=== PATIENT | female | born 1995 | race American Indian/Alaskan Native ===

== ENCOUNTER 2021-04-21 09:31 | Emergency (ER) | payer OTHER ==
[2021-04-21 10:20] LABS: BILIRUBIN,URINE NEGATIVE (NEGATIVE); GLUCOSE, URINE (UA) NEGATIVE (NEGATIVE); KETONES,URINE (UA) NEGATIVE (NEGATIVE); LEUKOCYTE ESTERASE, URINE NEGATIVE (NEGATIVE); NITRITE,URINE NEGATIVE (NEGATIVE); OCCULT BLOOD,URINE NEGATIVE (NEGATIVE); PH,URINE 7.5 PH (5.0-7.5); PROTEIN,URINE NEGATIVE (NEGATIVE); UROBILINOGEN,URINE 0.2 (NORMAL) E.U./dL (NORMAL)
[2021-04-21 10:21] LABS: CLARITY,URINE CLEAR (CLEAR); HCG UR QUAL NEGATIVE
[2021-04-21 10:23] LABS: BASOPHILS % (AUTO) 0.5 %; EOSINOPHILS % (AUTO) 0.5 %; HCT - HEMATOCRIT 39.7 % (37.0-47.0); HGB - HEMOGLOBIN 12.5 g/dL (12.0-16.0); LYMPHOCYTES # (AUTO) 1.4 10^3/uL (1.5-3.5); MEAN CORPUSCULAR HEMOGLOBIN 29.1 pg (27.0-31.0); MEAN CORPUSCULAR HGB CONC 31.5 g/dL (32.0-36.0); MEAN CORPUSCULAR VOLUME 92.5 fL (81.0-99.0); MEAN PLATELET VOLUME 11.7 fL (7.9-10.8); MONOCYTES # (AUTO) 0.5 10^3/uL (0.0-1.0); MONOCYTES % (AUTO) 7.6 %; NEUTROPHILS # (AUTO) 4.5 10^3/uL (1.5-6.6); NEUTROPHILS % (AUTO) 70.1 %; PLT - PLATELET COUNT 199 10^3/uL (130-450); RED BLOOD COUNT 4.29 10^6/uL (4.20-5.40); RED CELL DISTRIBUTION WIDTH 12.3 % (12.0-15.0); WHITE BLOOD COUNT 6.5 x10^3/uL (4.8-10.8)
[2021-04-21 10:35] LABS: ALBUMIN 4.3 g/dL (3.2-5.5); ALBUMIN/GLOBULIN RATIO 1.1 (1.0-2.2); BILIRUBIN,TOTAL 0.6 mg/dL (0.2-1.0); CALCIUM 9.7 mg/dL (8.5-10.3); CREATININE 0.7 mg/dL (0.4-1.0); TOTAL PROTEIN 8.1 g/dL (6.7-8.2)
[2021-04-21] MEDS ORDERED: iohexoL-300 100 ML VIAL ONE (11:26)
[2021-04-21] MEDS ORDERED: iohexoL-300 100 ML VIAL IVP ONE (12:16)
--- NOTE | 2021-04-21 12:35 | CT Report ---
PROCEDURE: Abdomen/Pelvis W INDICATIONS: persistent cramping pain X 2 months. CONTRAST: IV CONTRAST: Optiray 320 ml: 100 PO CONTRAST: *NO PO CONTRAST TECHNIQUE: After the administration of IV contrast, 5 mm thick sections acquired from the diaphragms to the symp hysis. 5 mm thick coronal and sagittal reformats were acquired. For radiation dose reduction, the f ollowing was used: automated exposure control, adjustment of mA and/or kV according to patient size. COMPARISON: None. FINDINGS: Image quality: Excellent. ABDOMEN: Lung bases: Lung bases are clear. There is pectus excavatum deformity seen, with mass effect upon t he heart. Heart size is normal. Solid organs: Liver and spleen are normal in size and enhancement. Gallbladder wall does not appear thickened. Biliary system is non dilated. Pancreas enhances normally. No adrenal nodules. Kidn eys demonstrate normal size and enhancement, without hydronephrosis. Peritoneum and bowel: Beginning at the level of the hepatic flexure, there is generalized nodular wal l thickening seen involving the colon. No findings of perforation or abscess can be seen. No dilated loops of small bowel are seen. No free fluid or air. There is a normal appendix seen, as on series 4 images 59 through 62. Nodes and vessels: No retroperitoneal or mesenteric adenopathy by size criteria. Aorta and inferior vena cava are normal in size. Miscellaneous: No ventral hernias. PELVIS: Genitourinary: Bladder wall thickness is normal. The uterus demonstrates an unremarkable appearance for age. No adnexal masses are seen. There is a rim-enhancing right ovarian cystic lesion, as on ser ies 4 image 69 and on series 7 image 23 measuring up to 20 mm. Miscellaneous: No inguinal hernias or adenopathy. Bones: No suspicious bony lesions. No vertebral body compression fractures. IMPRESSION: Mild nodular thickening can be seen involving the majority of the colon. Please correlat e with potential underlying infectious or inflammatory causes. Apparent right ovarian hemorrhagic cyst. If clinically appropriate, please consider a short-term fol low-up ultrasound in 6 weeks to ensure resolution/improvement. Incidental note is made of: Pectus excavatum deformity Normal appendix Reviewed by: Arturo Bentley MD on 04/21/2021 11:33 AM [place] Approved by: Arturo Bentley MD on 04/21/2021 11:33 AM [place] Station ID: [id number]
--- NOTE | 2021-04-21 12:52 | ED Physician Documentation ---
PD HPI ABD PAIN - Stated complaint Stated Complaint: STOMACH PX - Chief complaint Chief Complaint: Abd Pain - History obtained from History obtained from: Patient - History of Present Illness Timing - onset: How many months ago (2) Timing - duration: Months (2) Timing - details: Gradual onset, Still present Quality: Cramping, Sharp, Pain Location: All over / everywhere Improved by: Laying still Worsened by: Position, Palpation Associated symptoms: Nausea, Diarrhea Similar symptoms before: Has not had sx before Recently seen: Not recently seen - Additional information Additional information: Previously well 25-year-old female has developed a change in her bowel habits beginning about 2 months ago. She has been having some loose stool which happens every 2 to 3 days. She has a voluminous amount of stool and she has cramping pain associated with all of this. She has not had blood in her diarrhea. She has had cramping pain and she is here today for persistent cramping pain throughout her abdomen. She does not have a family history of inflammatory bowel disease and she has not had problems with digestion previously. She has not had fever. 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 : None HEENT: None Psych: Depression, Anxiety Musculoskeletal: None Derm: None - Past Surgical History Past Surgical History: No - Present Medications Home Medications: Ambulatory Orders Medication Instructions Recorded Confirmed Budesonide [Entocort EC] 9 mg PO DAILY #20 cap 04/21/21 - Allergies Allergies/Adverse Reactions: Allergies Allergy/AdvReac Type Severity Reaction Status Date / Time No Known Drug Allergies Allergy Verified 04/21/21 09:54 - Social History Does the pt smoke?: No Smoking Status: Never smoker Does the pt drink ETOH?: Yes Does the pt have substance abuse?: No - Immunizations Immunizations are current?: Yes PD ED PE NORMAL - Vitals Vital signs reviewed: Yes (Tachycardic) - General General: Alert and oriented X 3, No acute distress, Well developed/nourished - HEENT HEENT: Atraumatic, PERRL, EOMI - Neck Neck: Supple, no meningeal sign, No bony TTP - Cardiac Cardiac: RRR, No murmur - Respiratory Respiratory: No respiratory distress, Clear bilaterally - Abdomen Abdomen: Normal bowel sounds, Soft, Non distended, No organomegaly, Other (Mild generalized tenderness without guarding or rebound tenderness. Majority of the tenderness is suprapubic and spares the right upper quadrant.) - Back Back: No CVA TTP, No spinal TTP - Derm Derm: Normal color, Warm and dry, No rash - Extremities Extremities: No deformity, No edema - Neuro Neuro: Alert and oriented X 3, frame straightener 2-12 intact, No motor deficit, No sensory deficit, Normal speech Eye Opening: Spontaneous Motor: Obeys Commands Verbal: Oriented GCS Score: 15 - Psych Psych: Normal mood, Normal affect Results - Vitals Vitals: Vital Signs - 24 hr 04/21/21 04/21/21 04/21/21 09:54 11:08 12:43 Temperature 36.7 C 36.9 C 36.6 C Heart Rate 117 H 110 H 118 H Respiratory 18 16 16 Rate Blood Pressure 122/78 135/89 H 118/68 O2 Saturation 99 100 100 Oxygen O2 Source Room air - Labs Labs: Laboratory Tests 04/21/21 04/21/21 04/21/21 10:04 10:18 10:18 WBC 6.5 RBC 4.29 Hgb 12.5 Hct 39.7 MCV 92.5 MCH 29.1 MCHC 31.5 L RDW 12.3 Plt Count 199 MPV 11.7 H Neut # (Auto) 4.5 Lymph # (Auto) 1.4 L [place] # (Auto) 0.5 Eos # (Auto) 0.0 Baso # (Auto) 0.0 Absolute Nucleated RBC 0.00 Nucleated RBC % 0.0 Sodium 136 Potassium 4.0 Chloride 102 Carbon Dioxide 26 Anion Gap 8.0 BUN 13 Creatinine 0.7 Estimated GFR (MDRD) 104 Glucose 101 H Calcium 9.7 Total Bilirubin 0.6 AST 18 ALT 10 Alkaline Phosphatase 54 Total Protein 8.1 Albumin 4.3 Globulin 3.8 Albumin/Globulin Ratio 1.1 Lipase 31 Urine Color YELLOW Urine Clarity CLEAR Urine pH 7.5 Ur Specific [place] 1.015 Urine Protein NEGATIVE Urine Glucose (UA) NEGATIVE Urine Ketones NEGATIVE Urine Occult Blood NEGATIVE Urine Nitrite NEGATIVE Urine Bilirubin NEGATIVE Urine Urobilinogen 0.2 (NORMAL) Ur Leukocyte Esterase NEGATIVE Ur Microscopic Review NOT INDICATED Urine Culture Comments NOT INDICATED Urine HCG, Qual NEGATIVE - Rads (name of study) CT ab/pel with Radiology: Prelim report reviewed (Impression: Mild nodular thickening can be seen involving the majority of the colon. Please correlate with potential underlying infectious or inflammatory causes. Apparent right ovarian hemorrha gic cyst. If clinically appropriate please consider a short-term follow-up ultrasound), Final report received ( with ultrasound in 6 weeks to ensure resolution/improvement.), EMP read indepedently, See rad report PD MEDICAL DECISION MAKING - ED course Complexity details: reviewed results, re-evaluated patient, considered differential, d/w patient ED course: 25-year-old female with 2 months of intermittent abdominal cramping and loose stools appears to have some nodularity to the colon consistent with inflammatory bowel disease. We will start her on some budesonide and have her follow-up with her primary for referral to gastroenterology. There is an incidental finding of a hemorrhagic ovarian cyst on the right side. They have asked for follow-up ultrasound to ensure resolution. Departure - Departure Disposition: 01 Home, Self Care Clinical Impression: Inflammatory bowel disease Condition: Stable Instructions: ED Inflam Bowel Disease Crohn, ED Colitis Ulcerative Follow-Up: [facility] [Provider Group] Prescriptions: Budesonide [Entocort EC] 9 mg PO DAILY #20 cap Comments: Isabel, today it looks like you have some inflammatory bowel disease on your CAT scan. This does fit with your description historically. In order to make the appropriate diagnosis this requires a visit to the chemical etching processor and a scoping with biopsy. In the meantime I have written a prescription for some Budesinide which is a steroid released in the colon. This has been e-scribed to the [facility] pharmacy in [place]. The idea is for you to have some relief of your pain prior to getting in to see the chemical etching processor, as this can take some time. I have written a prescription for about 3 weeks worth of medicine and the typical course for this is about 12 weeks if it is effective. Follow-up with your primary for continuation of this medicine if it is helping and for referral to a chemical etching processor for definitive diagnosis. An additional incidental finding of a hemorrhagic ovarian cyst on the right side was found on your CAT scan. The radiologist has recommended a follow-up ultrasound to be done in the next 2 months. Follow-up with your primary for this test.
[2021-04-21 13:39] VITALS: BP 112/71
--- NOTE | 2021-04-22 16:18 | ED Physician Documentation ---
ED Addendum - Addendum Addendum: 04/22/21 16:18 Got message that no local pharmacy has budesonide. I sent a prednisone taper to [facility] for her.
== END 2021-04-21 13:40 | disposition home or self-care (01) ==
LOC: ED 09:31
DX: K52.9 Noninfective gastroenteritis and colitis, unspecified (principal)
CPT/HCPCS: 36415; 74177; 80053; 81003; 81025; 83690; 85025; 99283; 99284; Q9967; 81001; 87086

== ENCOUNTER 2021-06-12 10:30 | Emergency (ER) | payer OTHER ==
[2021-06-12 10:46] VITALS: BP 133/62
--- NOTE | 2021-06-12 10:48 | ED Physician Documentation ---
PD HPI UPPER EXT INJURY - Stated complaint Stated Complaint: FINGER PX - Chief complaint Chief Complaint: Laceration - History obtained from History obtained from: Patient - History of Present Illness Location: Right, Finger (index) Type of injury: Laceration (cut finger 4 days ago and has continued opening of the wound with tender and bleeding at times. No purulence.) Timing - onset: How many days ago (4) Timing - details: Abrupt onset, Still present (still with opening of wound edges at times and mild bleeding. No infection.) Associated symptoms: Discolored (mild purple color at edge c/w bruising.). 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 : None HEENT: None Psych: Depression, Anxiety Musculoskeletal: None Derm: None - Past Surgical History Past Surgical History: No - Present Medications Home Medications: Ambulatory Orders Medication Instructions Recorded Confirmed No Known Home Medications 06/12/21 06/12/21 - Allergies Allergies/Adverse Reactions: Allergies Allergy/AdvReac Type Severity Reaction Status Date / Time No Known Drug Allergies Allergy Verified 06/12/21 10:43 - Social History Does the pt smoke?: No Smoking Status: Never smoker Does the pt drink ETOH?: Yes Does the pt have substance abuse?: No - Immunizations Immunizations are current?: Yes PD ED PE NORMAL - Vitals Vital signs reviewed: Yes - General General: Alert and oriented X 3, No acute distress, Well developed/nourished - Derm Derm: Normal color, Warm and dry - Extremities Extremities: Other (Right index finger with a laceration on the ulnar side adjacent to the nailbed corner. It is a flap type laceration with the edges slightly lifted. No signs of infection. Slight purplish color at the edge consistent with bruising.) - Neuro Neuro: Alert and oriented X 3, No motor deficit, No sensory deficit Results - Vitals Vitals: Vital Signs - 24 hr 06/12/21 10:35 Temperature 37.2 C Heart Rate 85 Respiratory 19 Rate Blood Pressure 133/62 H O2 Saturation 98 Oxygen O2 Source Room air PD MEDICAL DECISION MAKING - ED course Complexity details: considered differential (We can just hold down the wound edge with Steri-Strips and glue. No signs of infection currently.), d/w patient Departure - Departure Disposition: 01 Home, Self Care Clinical Impression: Finger laceration Qualifiers: Encounter type: initial encounter Finger: index finger Damage to nail status: without damage Foreign body presence: without foreign body Laterality: right Qualified Code(s): S61.210A - Laceration without foreign body of right index finger without damage to nail, initial encounter Condition: Stable Record reviewed to determine appropriate education?: Yes Instructions: ED Laceration Ext Skin Glue Follow-Up: AMIRAH HART MD [Primary Care Provider] - Comments: The wound appears okay without signs of infection to me. I think the slight purple coloration is just some blood under the skin like a bruising type effect. Keep the Steri-Strips and glue clean and dry. You can cover over them with a bandage. They should fall off on their own after several days and then you can do regular wound care with cleaning soap and water and ointment and bandages. It should be more protected with the current tape and glue and be less tender over the next few days. Tylenol ibuprofen if needed for pains. Recheck if signs of infection. Discharge Date/Time: 06/12/21 11:25
== END 2021-06-12 11:25 | disposition home or self-care (01) ==
LOC: ED 10:30
DX: S61.210A Laceration without foreign body of right index finger without damage to nail, initial encounter (principal); W26.0XXA Contact with knife, initial encounter
CPT/HCPCS: 99281; 99282

== ENCOUNTER 2022-04-09 00:46 | Emergency (ER) | payer OTHER ==
[2022-04-09 01:07] VITALS: BP 125/67
[2022-04-09] MEDS ORDERED: SODIUM CHLORIDE 0.9% 1,000 ML IV STA (01:18)
[2022-04-09] MEDS ORDERED: ONDANSETRON 4 MG/2 ML VIAL IVP STA (01:19)
[2022-04-09 01:41] LABS: BASOPHILS % (AUTO) 0.5 %; EOSINOPHILS # (AUTO) 0.1 10^3/uL (0.0-0.7); HGB - HEMOGLOBIN 10.5 g/dL (12.0-16.0); LYMPHOCYTES # (AUTO) 1.9 10^3/uL (1.5-3.5); LYMPHOCYTES % (AUTO) 30.6 %; MEAN CORPUSCULAR HEMOGLOBIN 26.6 pg (27.0-31.0); MEAN CORPUSCULAR HGB CONC 30.9 g/dL (32.0-36.0); MEAN CORPUSCULAR VOLUME 86.1 fL (81.0-99.0); MEAN PLATELET VOLUME 12.1 fL (7.9-10.8); MONOCYTES # (AUTO) 0.4 10^3/uL (0.0-1.0); MONOCYTES % (AUTO) 6.3 %; NEUTROPHILS # (AUTO) 3.9 10^3/uL (1.5-6.6); NEUTROPHILS % (AUTO) 61.4 %; PLT - PLATELET COUNT 157 10^3/uL (130-450); RED BLOOD COUNT 3.95 10^6/uL (4.20-5.40); RED CELL DISTRIBUTION WIDTH 14.5 % (12.0-15.0); WHITE BLOOD COUNT 6.3 x10^3/uL (4.8-10.8)
[2022-04-09 01:52] LABS: ALBUMIN 4.1 g/dL (3.2-5.5); ALBUMIN/GLOBULIN RATIO 1.3 (1.0-2.2); ALKALINE PHOSPHATASE 50 IU/L (42-121); ALT ALANINE AMINOTRANSFERASE < 10 IU/L (10-60); AST ASPARTATE AMINOTRANSFERASE 15 IU/L (10-42); BILIRUBIN,TOTAL 0.3 mg/dL (0.2-1.0); BUN - BLOOD UREA NITROGEN 10 mg/dL (6-20); CALCIUM 9.4 mg/dL (8.5-10.3); CARBON DIOXIDE - CO2 24 mmol/L (21-32); CHLORIDE 104 mmol/L (101-111); CREATININE 0.7 mg/dL (0.4-1.0); GFR - MDRD 103 (>89); GLUCOSE 103 mg/dL (70-100); LIPASE 50 U/L (22-51); POTASSIUM 3.8 mmol/L (3.5-5.0); SODIUM 136 mmol/L (135-145); TOTAL PROTEIN 7.3 g/dL (6.7-8.2)
[2022-04-09 02:30] LABS: HCG,QUALITATIVE BLOOD NEGATIVE
[2022-04-09] MEDS ORDERED: iohexoL-300 100 ML VIAL ONE (02:51)
[2022-04-09] MEDS ORDERED: iohexoL-300 100 ML VIAL IVP ONE (03:25)
--- NOTE | 2022-04-09 03:50 | ED Physician Documentation ---
History of Present Illness - Stated complaint Stated Complaint: ABD PX,VOMIT - Chief complaint Chief Complaint: Abd Pain - History obtained from History obtained from: Patient - Additonal information Additional information: The patient comes to the emergency department chief complaint of diffuse abdominal pain worse in right lower quadrant, constipation, and nausea/vomiting intermittently for the last week and a half since starting a new medication for ADHD. The patient denies fevers or chills. No blood in her stools. No respiratory symptoms. No other complaints at this time. Review of Systems Ten Systems: 10 systems reviewed and negative Constitutional: reports: Reviewed and negative Eyes: reports: Reviewed and negative Ears: reports: Reviewed and negative Nose: reports: Reviewed and negative Throat: reports: Reviewed and negative Cardiac: reports: Reviewed and negative Respiratory: reports: Reviewed and negative GI: reports: Abdominal Pain, Nausea, Vomiting, Constipation : reports: Reviewed and negative Skin: reports: Reviewed and negative Musculoskeletal: reports: Reviewed and negative Neurologic: reports: Reviewed and negative Psychiatric: reports: Reviewed and negative Endocrine: reports: Reviewed and negative Immunocompromised: reports: Reviewed and negative PD PAST MEDICAL HISTORY - Past Medical History Cardiovascular: None Respiratory: None Neuro: Migraines Endocrine/Autoimmune: None 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 : None HEENT: None Psych: Depression, Anxiety, ADD/ADHD Musculoskeletal: None Derm: None - Past Surgical History Past Surgical History: No - Present Medications Home Medications: Ambulatory Orders Medication Instructions Recorded Confirmed Docusate Sodium 250Mg Capsule 250 mg PO DAILY #30 cap 04/09/22 [Colace 250Mg Capsule] Escitalopram Oxalate 5 mg PO DAILY 04/09/22 04/09/22 Magnesium Citrate [Citrate of 148 ml PO Q12H PRN #296 ml 04/09/22 Magnesia] Ondansetron Odt [Zofran] 4 mg TL Q6H PRN #10 tablet 04/09/22 Viloxazine HCl [Qelbree] 200 mg PO DAILY 04/09/22 04/09/22 - Allergies Allergies/Adverse Reactions: Allergies Allergy/AdvReac Type Severity Reaction Status Date / Time No Known Drug Allergies Allergy Verified 04/09/22 01:07 - Social History Does the pt smoke?: No Smoking Status: Never smoker Does the pt drink ETOH?: Yes Does the pt have substance abuse?: No - Immunizations Immunizations are current?: Yes PD ED PE NORMAL - Vitals Vital signs reviewed: Yes - General General: Alert and oriented X 3, No acute distress, Well developed/nourished - HEENT HEENT: Atraumatic, PERRL, EOMI, Moist mucous membranes - Neck Neck: Supple, no meningeal sign - Cardiac Cardiac: RRR, No murmur, Strong equal pulses - Respiratory Respiratory: No respiratory distress, Clear bilaterally - Abdomen Abdomen: Soft, Non distended, Other (Moderate tenderness right lower quadrant, no other tenderness noted on exam. No rebound or guarding.) - Back Back: No CVA TTP - Derm Derm: Normal color, Warm and dry, No rash - Extremities Extremities: No deformity - Neuro Neuro: Alert and oriented X 3 - Psych Psych: Normal mood, Normal affect Results - Vitals Vitals: Vital Signs - 24 hr 04/09/22 01:00 Temperature 36.7 C Heart Rate 88 Respiratory 18 Rate Blood Pressure 125/67 O2 Saturation 100 Oxygen O2 Source Room air - Labs Labs: Laboratory Tests 04/09/22 04/09/22 04/09/22 01:29 01:29 01:29 WBC 6.3 RBC 3.95 L Hgb 10.5 L Hct 34.0 L MCV 86.1 MCH 26.6 L MCHC 30.9 L RDW 14.5 Plt Count 157 MPV 12.1 H Neut # (Auto) 3.9 Lymph # (Auto) 1.9 [place] # (Auto) 0.4 Eos # (Auto) 0.1 Baso # (Auto) 0.0 Absolute Nucleated RBC 0.00 Nucleated RBC % 0.0 Sodium 136 Potassium 3.8 Chloride 104 Carbon Dioxide 24 Anion Gap 8.0 BUN 10 Creatinine 0.7 Estimated GFR (MDRD) 103 Glucose 103 H Calcium 9.4 Total Bilirubin 0.3 AST 15 ALT < 10 L Alkaline Phosphatase 50 Total Protein 7.3 Albumin 4.1 Globulin 3.2 Albumin/Globulin Ratio 1.3 Lipase 50 Serum HCG, Qual NEGATIVE - Rads (name of study) CT abdomen pelvis Radiology: Prelim report reviewed, Final report received, See rad report (Ruptured right ovarian cyst; normal appendix; significant fecal burden) PD Medical Decision Making - ED course Complexity details: reviewed results, re-evaluated patient, considered differential, d/w patient ED course: The patient was fairly well-appearing, but did have tenderness that localizes to the right lower quadrant. Given that this has been going on for a week and a half, and was accompanied by nausea and vomiting, I felt the patient should be worked up. Laboratory studies were unremarkable. The patient was sent for CT scan of the abdomen and pelvis. In the meantime, she was given IV fluids and Zofran. The CT scan showed constipation and a rupturing right ovarian cyst. The patient was advised of the results and that no emergent condition has been identified. We discussed symptomatic management at home, as well as the usual indications for return. Departure - Departure Disposition: Home, Self Care Clinical Impression: Ruptured ovarian cyst Vomiting Qualifiers: Vomiting type: bilious vomiting Nausea presence: with nausea Qualified Code(s): R11.14 - Bilious vomiting Constipation Qualifiers: Constipation type: unspecified constipation type Qualified Code(s): K59.00 - Constipation, unspecified Condition: Stable Instructions: Cyst Ruptured Ovarian Tx, ED Constipation, ED Nausea Vomiting Prescriptions: Magnesium Citrate [Citrate of Magnesia] 148 ml PO Q12H PRN #296 ml PRN Reason: Constipation Docusate Sodium 250Mg Capsule [Colace 250Mg Capsule] 250 mg PO DAILY #30 cap Ondansetron Odt [Zofran] 4 mg TL Q6H PRN #10 tablet PRN Reason: Nausea / Vomiting Comments: Your labs look good. Your CT scan shows a normal appendix, but a partially ruptured ovarian cyst on the right. There is also a large amount of stool filling your colon. It is possible that your new medications cause the constipation. You may continue to take the new medication, but should also take a stool softener with this to help with some of the unpleasant side effects. Please follow-up with your primary care physician as needed. Your prescriptions have been electronically transmitted to [facility] pharmacy in [place], your pharmacy of choice on record. Discharge Date/Time: 04/09/22 05:50
--- NOTE | 2022-04-09 08:38 | CT Report ---
PROCEDURE: ABDOMEN/PELVIS W INDICATIONS: RLQ abd pn/vomiting CONTRAST: Omni 300 100ml TECHNIQUE: After the administration of IV contrast, 5 mm thick sections acquired from the diaphragms to the symp hysis. 5 mm thick coronal and sagittal reformats were acquired. For radiation dose reduction, the f ollowing was used: automated exposure control, adjustment of mA and/or kV according to patient size. COMPARISON: 04/21/2021. FINDINGS: Image quality: Excellent. ABDOMEN: Lung bases: Lung bases are clear. Heart size is normal. Solid organs: Liver and spleen are normal in size and enhancement. Gallbladder is within normal rosa its. Biliary system is non dilated. Pancreas enhances normally. No adrenal nodules. Kidneys demon strate normal size and enhancement, without hydronephrosis. Peritoneum and bowel: There is no bowel obstruction. No abnormal bowel wall thickening. Moderate feca l stasis throughout the colon is seen. Appendix is visualized in right lower quadrant and is normal i n size and appearance. No abscess collection. No free fluid or free air. Nodes and vessels: No retroperitoneal or mesenteric adenopathy by size criteria. Aorta and inferior vena cava are normal in size. Miscellaneous: No ventral hernias. PELVIS: Genitourinary: Bladder wall thickness is normal. Uterus and left ovary show no gross abnormality. 1 .7 cm fluid density structure is noted within right ovary. Miscellaneous: No inguinal hernias or adenopathy. Bones: No suspicious bony lesions. No vertebral body compression fractures. IMPRESSION: 1. Normal appendix. 2. No bowel obstruction. No abscess collection. No free fluid or free air. Moderate constipation. 3. Suggestion of a partially collapsed small right ovarian cyst measures 1.7 cm in size. No discrepancies from preliminary reading. Reviewed by: Ferny Bill MD on 04/09/2022 8:36 AM PST Approved by: Ferny Bill MD on 04/09/2022 8:36 AM PST Station ID: [id number]
== END 2022-04-09 05:50 | disposition home or self-care (01) ==
LOC: ED 00:46
DX: N83.201 Unspecified ovarian cyst, right side (principal); K66.1 Hemoperitoneum
CPT/HCPCS: 36415; 74177; 80053; 83690; 84703; 85025; 96361; 96374; 99282; 99284; Q9967

== ENCOUNTER 2022-04-29 08:45 | Emergency (ER) | payer OTHER ==
--- NOTE | 2022-04-29 09:07 | ED Physician Documentation ---
PD HPI ABD PAIN - Stated complaint Stated Complaint: STOMACH PX/VOMITING - Chief complaint Chief Complaint: Abd Pain - History obtained from History obtained from: Patient - History of Present Illness Timing - onset: How many weeks ago (5-6) Timing - duration: Weeks Timing - details: Gradual onset, Still present, Waxing and waning (has had abd pain intermittently for 5-6 weeks. Seen a month ago for lower abd pain and Dx with partial ruptured ovarian cyst. States has continued with pain intermittently. Has not had good BM for 2 weeks and the amounts out have been small and strained. Having worse pain mid to lower abd 2 days.) Quality: Cramping, Aching. No: Fullness/distended Location: All over / everywhere (mostly lower abd but has had upper and left abd pains recently as well.) Radiation: No: Chest, , Lower back Improved by: BM (but has not had much of them for 2 weeks.). No: Eating Worsened by: Palpation. No: Eating, Moving, Breathing Associated symptoms: Constipation. No: Fever, Nausea, Vomiting, Diarrhea, Dysuria, Vaginal dc Similar symptoms before: Diagnosis (had Dx of ovarian cyst partly ruptured a month ago. Had had diffuse abd cramping/pain about a year ago and dx with colitis. Saw GI in follow up but was better and deferred colonoscopy unless gets more symptoms.) Recently seen: Emergency Dept (1 month ago) Review of Systems Constitutional: denies: Fever, Chills Throat: denies: Sore throat Cardiac: denies: Chest pain / pressure Respiratory: denies: Dyspnea, Cough GI: reports: Abdominal Pain, Nausea, Constipation. denies: Vomiting, Diarrhea : denies: Dysuria, Discharge Skin: denies: Rash, Lesions PD PAST MEDICAL HISTORY - Past Medical History Cardiovascular: None Respiratory: None Neuro: Migraines Endocrine/Autoimmune: None GI: Other HEAD CHARRER: None : None HEENT: None Psych: Depression, Anxiety, ADD/ADHD Musculoskeletal: None Derm: None - Past Surgical History Past Surgical History: No - Present Medications Home Medications: Ambulatory Orders Medication Instructions Recorded Confirmed Docusate Sodium 250Mg Capsule 250 mg PO DAILY #30 cap 04/09/22 [Colace 250Mg Capsule] Escitalopram Oxalate 5 mg PO DAILY 04/09/22 04/09/22 Magnesium Citrate [Citrate of 148 ml PO Q12H PRN #296 ml 04/09/22 Magnesia] Ondansetron Odt [Zofran] 4 mg TL Q6H PRN #10 tablet 04/09/22 Viloxazine HCl [Qelbree] 200 mg PO DAILY 04/09/22 04/09/22 HYDROcod/ACETAM 5/325 [[place] 5/325] 1 ea PO Q6H PRN #12 tablet 04/29/22 Meloxicam [Mobic] 7.5 mg PO BID 10 Days #20 tablet 04/29/22 Ondansetron Odt [Zofran] 4 mg TL Q6H PRN #20 tablet 04/29/22 polyethylene glycoL 3350 [Miralax] 17 gm PO DAILY PRN #1 each 04/29/22 - Allergies Allergies/Adverse Reactions: Allergies Allergy/AdvReac Type Severity Reaction Status Date / Time No Known Drug Allergies Allergy Verified 04/09/22 01:07 - Social History Does the pt smoke?: No Smoking Status: Never smoker Does the pt drink ETOH?: Yes Does the pt have substance abuse?: No - Immunizations Immunizations are current?: Yes PD ED PE NORMAL - Vitals Vital signs reviewed: Yes - General General: Alert and oriented X 3, Well developed/nourished, Other (appears in pain in abdomen) - HEENT HEENT: Pharynx benign - Neck Neck: Supple, no meningeal sign, No adenopathy - Cardiac Cardiac: RRR, No murmur - Respiratory Respiratory: Clear bilaterally - Abdomen Abdomen: Normal bowel sounds, Soft, Non distended, No organomegaly, Other (tender mid abdomen and left without percussion, rebound nor referred tenderness. Not tender in RLQ in particular. ) - Female Female : Deferred - Rectal Rectal: Deferred - Back Back: No CVA TTP - Derm Derm: Normal color Results - Vitals Vitals: Vital Signs - 24 hr 04/29/22 04/29/22 04/29/22 08:51 10:59 12:00 Temperature 36.6 C 36.5 C Heart Rate 110 H 77 74 Respiratory 18 16 16 Rate Blood Pressure 119/77 103/60 106/62 O2 Saturation 100 100 98 04/29/22 13:43 Temperature 36.5 C Heart Rate 72 Respiratory 16 Rate Blood Pressure 110/60 O2 Saturation 98 Oxygen O2 Source Room air - Labs Labs: Laboratory Tests 04/29/22 04/29/22 04/29/22 09:05 09:05 09:05 WBC RBC Hgb Hct MCV MCH MCHC RDW Plt Count MPV Neut # (Auto) Lymph # (Auto) Madison # (Auto) Eos # (Auto) Baso # (Auto) Absolute Nucleated RBC Nucleated RBC % ESR Sodium Potassium Chloride Carbon Dioxide Anion Gap BUN Creatinine Estimated GFR (MDRD) Glucose Calcium Total Bilirubin AST ALT Alkaline Phosphatase Total Protein Albumin Globulin Albumin/Globulin Ratio Lipase Urine Color YELLOW Urine Clarity CLEAR Urine pH 7.0 Ur Specific Eagle 1.010 Urine Protein NEGATIVE Urine Glucose (UA) NEGATIVE Urine Ketones NEGATIVE Urine Occult Blood NEGATIVE Urine Nitrite NEGATIVE Urine Bilirubin NEGATIVE Urine Urobilinogen 0.2 (NORMAL) Ur Leukocyte Esterase NEGATIVE Ur Microscopic Review NOT INDICATED Urine Culture Comments NOT INDICATED Urine HCG, Qual NEGATIVE C. glabrata (PCR) C. krusei (PCR) Rozina species DNA Chlam trachomat DNA PCR NEGATIVE N.gonorrhoeae DNA (PCR) NEGATIVE T. vaginalis (PCR) TNP Bact Vaginosis (PCR) 04/29/22 04/29/22 04/29/22 09:39 09:39 09:39 WBC 4.6 L RBC 4.04 L Hgb 10.7 L Hct 34.9 L MCV 86.4 MCH 26.5 L MCHC 30.7 L RDW 14.8 Plt Count 166 MPV 11.8 H Neut # (Auto) 3.0 Lymph # (Auto) 1.3 L Madison # (Auto) 0.3 Eos # (Auto) 0.0 Baso # (Auto) 0.0 Absolute Nucleated RBC 0.00 Nucleated RBC % 0.0 ESR 23 H Sodium 135 Potassium 3.5 Chloride 102 Carbon Dioxide 25 Anion Gap 8.0 BUN 10 Creatinine 0.7 Estimated GFR (MDRD) 103 Glucose 86 Calcium 9.1 Total Bilirubin 0.7 AST 16 ALT 10 Alkaline Phosphatase 60 Total Protein 7.6 Albumin 4.3 Globulin 3.3 Albumin/Globulin Ratio 1.3 Lipase 35 Urine Color Urine Clarity Urine pH Ur Specific Eagle Urine Protein Urine Glucose (UA) Urine Ketones Urine Occult Blood Urine Nitrite Urine Bilirubin Urine Urobilinogen Ur Leukocyte Esterase Ur Microscopic Review Urine Culture Comments Urine HCG, Qual C. glabrata (PCR) C. krusei (PCR) Rozina species DNA Chlam trachomat DNA PCR N.gonorrhoeae DNA (PCR) T. vaginalis (PCR) Bact Vaginosis (PCR) 04/29/22 09:59 WBC RBC Hgb Hct MCV MCH MCHC RDW Plt Count MPV Neut # (Auto) Lymph # (Auto) Madison # (Auto) Eos # (Auto) Baso # (Auto) Absolute Nucleated RBC Nucleated RBC % ESR Sodium Potassium Chloride Carbon Dioxide Anion Gap BUN Creatinine Estimated GFR (MDRD) Glucose Calcium Total Bilirubin AST ALT Alkaline Phosphatase Total Protein Albumin Globulin Albumin/Globulin Ratio Lipase Urine Color Urine Clarity Urine pH Ur Specific Eagle Urine Protein Urine Glucose (UA) Urine Ketones Urine Occult Blood Urine Nitrite Urine Bilirubin Urine Urobilinogen Ur Leukocyte Esterase Ur Microscopic Review Urine Culture Comments Urine HCG, Qual C. glabrata (PCR) NEGATIVE C. krusei (PCR) NEGATIVE Rozina species DNA NEGATIVE Chlam trachomat DNA PCR N.gonorrhoeae DNA (PCR) T. vaginalis (PCR) NEGATIVE Bact Vaginosis (PCR) NEGATIVE - Rads (name of study) pelvic U/S Radiology: Prelim report reviewed (had CT abd a month ago showing ovarian cyst partly collapsed and small free fluid. No other abnormal. Has constipation and pain now could be that. Can assess ovaries with U/S to see if changed. ), See rad report PD Medical Decision Making - ED course Complexity details: considered differential, d/w patient Reviewed Lab Results: normal labs except elevated ESR mildly at 23. Consider IBD/Crohn's type illness in lieu of having similar uncertain cause abd pain about a year ago. Can treat with nsaiDs and stool softener. Does not have acute abd findings and nroamL WBC and no fever. So I do not think significant infectious colitis. Departure - Departure Disposition: 01 Home, Self Care Clinical Impression: Generalized abdominal cramping, Ovarian cyst, Irritable bowel Condition: Stable Record reviewed to determine appropriate education?: Yes Instructions: ED Abdominal Pain Female Non-Specific Abdominal Pain Follow-Up: AMIRAH HART MD [Primary Care Provider] - Prescriptions: polyethylene glycoL 3350 [Miralax] 17 gm PO DAILY PRN #1 each PRN Reason: Constipation Meloxicam [Mobic] 7.5 mg PO BID 10 Days #20 tablet HYDROcod/ACETAM 5/325 [[place] 5/325] 1 ea PO Q6H PRN #12 tablet PRN Reason: Pain Ondansetron Odt [Zofran] 4 mg TL Q6H PRN #20 tablet PRN Reason: Nausea / Vomiting Comments: Your ultrasound today showed the presence of a cyst on the left side which is about 2 cm. No signs of bleeding or leakage from it (no free fluid). The size of this is unlikely to be causing pain at this time. No other acute abnormalities noted per se. Consideration for your cramps and pains can be ongoing level of constipation and some irritation of the intestines. Other consideration would be some inflammatory bowel disease such as inflammatory bowel/Crohn's etc. Your inflammatory marker called the ESR is slightly elevated at 25 which may be correlating with that. I would have you stay well-hydrated and continue with your docusate daily. If you do feel that there is some stool in the rectum and having difficulty coming out, and you could use a Dulcolax suppository to help stimulate that. Otherwise stay well-hydrated and we would add MiraLAX to help with the constipation. Initially use the MiraLAX 17 g in half to 1 cup of water and repeat the dosing every 2-3 hours through the day today and tomorrow until your stools are moving a little more loosely. Then reduce it to just once daily in addition to your fiber and docusate. For consideration of some inflammatory bowel, I would also add meloxicam twice daily for the next 7 to 10 days. To that add Tylenol every 4-6 hours if needed for pain. Add hydrocodone sparingly if needed for worse pain as will increase constipation. Follow-up with your primary care and also with the rereferral to the battery container tester [employer] in [facility] that you would seen previously. Consideration would be for further testing and potential colonoscopy to better evaluate the ongoing pains. Is a new prescription to [facility] pharmacy in the [place]. I am prescribing a short course of narcotic pain medication for you. These are potentially dangerous and addictive medications that should be used carefully. These medications may constipate you. Take an [id number] stool softener such as docusate twice daily with plenty of water while taking these medications. If you go 24 hours without a bowel movement, take [id number] MiraLAX, per package instructions. Do not drink or drive while taking these medications. If you received narcotic or sedating medications while in the emergency department do not drive for 24 hours. Store this medication in a safe, secure place and out of reach of children. It is a violation of federal law to give or sell this medication to another person or to use in a manner other than prescribed. The ED will not refill narcotic prescriptions, including prescriptions lost or stolen. You can dispose of unwanted medications at the [facility]'s office or at several pharmacies such as [facility]. Discharge Date/Time: 04/29/22 13:43
[2022-04-29] MEDS ORDERED: MORPHINE 10 MG/ML VIAL IVP STA (09:29)
[2022-04-29] MEDS ORDERED: KETOROLAC 15 MG/ML VIAL IVP STA (09:29)
[2022-04-29] MEDS ORDERED: ONDANSETRON 4 MG/2 ML VIAL IVP STA (09:29)
[2022-04-29] MEDS ORDERED: SODIUM CHLORIDE 0.9% 1,000 ML IV STA (09:29)
[2022-04-29 09:45] LABS: BILIRUBIN,URINE NEGATIVE (NEGATIVE); GLUCOSE, URINE (UA) NEGATIVE (NEGATIVE); KETONES,URINE (UA) NEGATIVE (NEGATIVE); LEUKOCYTE ESTERASE, URINE NEGATIVE (NEGATIVE); NITRITE,URINE NEGATIVE (NEGATIVE); OCCULT BLOOD,URINE NEGATIVE (NEGATIVE); PROTEIN,URINE NEGATIVE (NEGATIVE); UROBILINOGEN,URINE 0.2 (NORMAL) E.U./dL (NORMAL)
[2022-04-29 09:46] LABS: BASOPHILS % (AUTO) 0.6 %; EOSINOPHILS % (AUTO) 0.9 %; HCT - HEMATOCRIT 34.9 % (37.0-47.0); HGB - HEMOGLOBIN 10.7 g/dL (12.0-16.0); LYMPHOCYTES # (AUTO) 1.3 10^3/uL (1.5-3.5); LYMPHOCYTES % (AUTO) 27.6 %; MEAN CORPUSCULAR HEMOGLOBIN 26.5 pg (27.0-31.0); MEAN CORPUSCULAR HGB CONC 30.7 g/dL (32.0-36.0); MEAN CORPUSCULAR VOLUME 86.4 fL (81.0-99.0); MEAN PLATELET VOLUME 11.8 fL (7.9-10.8); MONOCYTES # (AUTO) 0.3 10^3/uL (0.0-1.0); MONOCYTES % (AUTO) 6.3 %; NEUTROPHILS % (AUTO) 64.4 %; PLT - PLATELET COUNT 166 10^3/uL (130-450); RED BLOOD COUNT 4.04 10^6/uL (4.20-5.40); RED CELL DISTRIBUTION WIDTH 14.8 % (12.0-15.0); WHITE BLOOD COUNT 4.6 x10^3/uL (4.8-10.8)
[2022-04-29 09:51] LABS: CLARITY,URINE CLEAR (CLEAR)
[2022-04-29 09:52] LABS: HCG UR QUAL NEGATIVE
[2022-04-29 10:01] LABS: ALBUMIN 4.3 g/dL (3.2-5.5); ALBUMIN/GLOBULIN RATIO 1.3 (1.0-2.2); BILIRUBIN,TOTAL 0.7 mg/dL (0.2-1.0); CALCIUM 9.1 mg/dL (8.5-10.3); CREATININE 0.7 mg/dL (0.4-1.0); POTASSIUM 3.5 mmol/L (3.5-5.0); TOTAL PROTEIN 7.6 g/dL (6.7-8.2)
--- NOTE | 2022-04-29 11:56 | Ultrasound Report ---
PROCEDURE: Pelvic w/Doppler Complete INDICATIONS: left/lower abd pain/cramps x 1 month TECHNIQUE: Ultrasound the pelvis was performed. COMPARISON: None. FINDINGS: Uterus is normal in size measuring 71 mm x 37 mm x 49 mm about focal mass. Uterus is anteverted. Endo metrium measures 14 mm which is within normal limits for patient age. Cervix and vagina are within normal limits as visualized. Right ovary measures 26 mm x 24 mm x 16 mm, for a volume of 5.2 mL. Less than 12 follicular cysts are present. Left ovary measures 43 mm x 33 mm x 29 mm, for a volume of 21 mm. There are 2 left ovarian cyst measu ring 22 mm each. Less than 12 follicular cysts are present. There is intact Doppler flow to bilateral ovaries at the time of the examination. IMPRESSION: Negative examination. No acute process. Reviewed by: Rodrigue Mederos MD on 04/29/2022 11:55 AM PST Approved by: Rodrigue Mederos MD on 04/29/2022 11:55 AM PST Station ID: [id number]
[2022-04-29 12:28] LABS: BACTERIAL VAGINOSIS DNA NEGATIVE (NEGATIVE); CANDIDA GLABRATA DNA NEGATIVE (NEGATIVE); CANDIDA GROUP DNA NEGATIVE (NEGATIVE); CANDIDA KRUSEI DNA NEGATIVE (NEGATIVE); TRICHOMONAS VAGINALIS DNA NEGATIVE (NEGATIVE)
[2022-04-29] MEDS ORDERED: DEXAMETHASONE 10 MG/ML VIAL IVP STA (13:23)
[2022-04-29 13:44] VITALS: BP 110/60
[2022-04-29 15:04] LABS: CHLAMYDIA TRACHOMATIS DNA NEGATIVE (NEGATIVE); NEISSERIA GONORRHOEAE DNA NEGATIVE (NEGATIVE)
== END 2022-04-29 13:43 | disposition home or self-care (01) ==
LOC: ED 08:45
DX: R10.84 Generalized abdominal pain (principal); K58.9 Irritable bowel syndrome, unspecified; N83.209 Unspecified ovarian cyst, unspecified side
CPT/HCPCS: 36415; 80053; 81001; 81003; 81025; 81514; 83690; 85025; 85651; 87086; 87491; 87591; 87661; 93975; 96361; 96374; 96375; 99284

== ENCOUNTER 2022-08-23 17:04 | Emergency (ER) | payer OTHER ==
[2022-08-23 17:20] VITALS: BP 121/70
[2022-08-23 17:57] LABS: RAPID STREP SCREEN Negative (Negative)
--- NOTE | 2022-08-23 18:35 | ED Physician Documentation ---
History of Present Illness - Stated complaint Stated Complaint: COUGH, TONGUE NUMB - Chief complaint Chief Complaint: Heent - Additonal information Additional information: 27-year-old female presents emergency department for evaluation of a sore throat. Was at the park yesterday began to have a scratchy tickle in the back of her throat. Then she began to have some pain. She thought it may be allergies so she took an allergy medicine. Later in the evening she thought that her tongue was numb. She has had no difficulty swallowing or difficulty with phonation. Today she is intermittently had a weird sensation like something could be stuck in her throat. She does have a history of esophagitis for which she takes Protonix. She has had some mild congestion but no fevers. Review of Systems Constitutional: denies: Fever, Myalgias Nose: reports: Congestion Throat: reports: Sore throat Cardiac: reports: Reviewed and negative Respiratory: reports: Reviewed and negative GI: reports: Reviewed and negative : reports: Reviewed and negative PD PAST MEDICAL HISTORY - Past Medical History Cardiovascular: None Respiratory: None Neuro: Migraines Endocrine/Autoimmune: None GI: Other BOXCAR WEIGHER: None : None HEENT: None Psych: Depression, Anxiety, ADD/ADHD Musculoskeletal: None Derm: None - Past Surgical History Past Surgical History: No - Present Medications Home Medications: Ambulatory Orders Medication Instructions Recorded Confirmed Atomoxetine HCl [Strattera] 60 mg ORAL DAILY 08/23/22 08/23/22 Pantoprazole [Protonix] 40 mg PO DAILY 08/23/22 08/23/22 - Allergies Allergies/Adverse Reactions: Allergies Allergy/AdvReac Type Severity Reaction Status Date / Time No Known Drug Allergies Allergy Verified 08/23/22 17:15 - Social History Does the pt smoke?: No Smoking Status: Never smoker Does the pt drink ETOH?: Yes Does the pt have substance abuse?: No - Immunizations Immunizations are current?: Yes PD ED PE NORMAL - General General: Alert and oriented X 3, No acute distress, Well developed/nourished - HEENT HEENT: Atraumatic, EOMI, Ears normal, Moist mucous membranes, Pharynx benign, Other (Normal phonation, normal swallow. No trismus.) - Neck Neck: Supple, no meningeal sign, No adenopathy - Cardiac Cardiac: RRR, No murmur - Respiratory Respiratory: No respiratory distress - Abdomen Abdomen: Normal bowel sounds, Soft, Non tender - Derm Derm: Normal color, Warm and dry, No rash - Extremities Extremities: No deformity Results - Vitals Vitals: Vital Signs - 24 hr 08/23/22 17:15 Temperature 37.4 C Heart Rate 113 H Respiratory 18 Rate Blood Pressure 121/70 O2 Saturation 100 Oxygen O2 Source Room air - Labs Labs: Laboratory Tests 08/23/22 17:20 Group A Strep Rapid Negative PD Medical Decision Making - ED course Complexity details: reviewed results, d/w patient ED course: Well-appearing 27-year-old female presents emergency department for evaluation of sore throat that occurred while at the park yesterday. She initially thought she had allergies but over the last 24 hours the sensation has not gone away. She has had no fevers. She did endorse coughing up some blood-tinged sputum once. By PERC criteria she would be low risk or negative for DVT thus deferred a D-dimer or other imaging. ENT exam was entirely unremarkable. I discussed with patient that given the unremarkable exam I did not feel any new treatment was warranted today. Clinically without fever or even productive cough pneumonia is not felt to be likely. She has no findings suggestive of congestive heart failure. Patient will follow close with PCP. The usual emergent return precautions worsening symptoms were discussed. Departure - Departure Disposition: 01 Home, Self Care Clinical Impression: Sore throat, Globus sensation Condition: Stable Record reviewed to determine appropriate education?: Yes Comments: Isabel had a you came to the emergency department today because yesterday while at the park he began to have a sensation of some pain in the back of your tongue and throat. You also reported that you did cough up some bloody sputum. As discussed at the bedside your exam was entirely normal. The 3 most common causes of the globus sensation we talked about are silent acid reflux, allergies or even a viral upper respiratory infection. You can continue to take the allergy medication at home. Stay well-hydrated. I do not think antibiotics would benefit you today. We will notify you if the culture of your throat is positive and at that point we can discuss ordering antibiotics if necessary. Over the next several days you have can take a teaspoon of honey that can often help with sore throat and the weird swallowing sensation. Continue to use the Claritin. If you develop any fevers, have chest pain or shortness of air please return immediately to the ER for repeat evaluation
== END 2022-08-23 18:44 | disposition home or self-care (01) ==
LOC: ED 17:04
DX: R07.0 Pain in throat (principal); R09.89 Other specified symptoms and signs involving the circulatory and respiratory systems
CPT/HCPCS: 87070; 87430; 99283